=== PATIENT | male | born 1945 ===

== ENCOUNTER 2022-01-19 06:18 | Day surgery (SDC) | payer OTHER ==
[~2022-01-19] VITALS: Ht 167.6 cm; Wt 83.9 kg
[2022-01-19] MEDS ORDERED: Lisinopril-Hct1 EAC4 PO (06:50)
--- NOTE | 2022-01-19 07:43 | NUR ---
Ambulatory in Day Surgery History, Chart, Medications and Allergies reviewed before start of procedure.Pre-Op teaching done. Pt verbalizes understanding. Patient States Post-Procedure ride home has been arranged.
--- NOTE | 2022-01-19 10:26 | NUR ---
Dressing to procedure site clean, dry, intact with no visible drainage, swelling, erythema or bruising noted.
--- NOTE | 2022-01-19 10:49 | NUR ---
Dressing to procedure site clean, dry, intact with no visible drainage, swelling, erythema or bruising noted. Discharge instructions reviewed with patient. Patient verbalizes understanding. Copy given to patient to take home.
--- NOTE | 2022-01-19 11:01 | NUR ---
Discharged via wheelchair to private car for ride home.
--- NOTE | 2022-01-20 16:03 | NUR ---
01/20/22 1603 [address] Moss VERIFICATIONS, AUDITS
== END 2022-01-19 11:02 | disposition home or self-care (01) ==
LOC: ORSCMMR 06:18 → ORD 01-21 07:30
PROVIDERS: Surgery
PROC: 0YUA4JZ Supplement Bilateral Inguinal Region with Synthetic Substitute, Percutaneous Endoscopic Approach (ICD-10-PCS; principal; 2022-01-19 07:30)
PROC: 8E0W4CZ Robotic Assisted Procedure of Trunk Region, Percutaneous Endoscopic Approach (ICD-10-PCS; principal; 2022-01-19 07:30)
DX: K40.20 Bilateral inguinal hernia, without obstruction or gangrene, not specified as recurrent (principal); N43.3 Hydrocele, unspecified; I10 Essential (primary) hypertension; Z87.891 Personal history of nicotine dependence; F41.8 Other specified anxiety disorders; Z79.899 Other long term (current) drug therapy
CPT/HCPCS: 49650; S2900; A9270; C1781; J0690; J1100; J1885; J2370; J2405; J2704; J2795; J3010; J7120